=== PATIENT | male | born 1975 | race Two or more races ===

== ENCOUNTER 2017-02-21 07:51 | Day surgery (SDC) | payer MEDICAID ==
[~2017-02-21 07:51] MED LIST: Lactated Ringers 1,000 ML IV SCH
[2017-02-21] MEDS ORDERED: Midazolam 1 MG/ML 2 ML SDV IV ONE (09:30)
[2017-02-21] MEDS ORDERED: fentaNYL 100 MCG/2 ML SDV IV ONE (09:30)
[2017-02-21] MEDS ORDERED: Ondansetron 4 MG/2 ML SDV IVPUSH ONE (09:30)
[2017-02-21] MEDS ORDERED: Dexamethasone 4 MG/ML 5 ML MDV IVPUSH ONE (09:30)
[2017-02-21] MEDS ORDERED: Lidocaine 2% 100 MG/5 ML Syringe IVPUSH ONE (09:30)
[2017-02-21] MEDS ORDERED: Propofol 200 MG/20 ML SDV IV ONE (09:30)
[2017-02-21] MEDS ORDERED: Lidocaine 1% 20 ML MDV ONE (09:45)
[2017-02-21] MEDS ORDERED: Bupivacaine 0.5% 30 ML SDV ONE (09:45)
[2017-02-21] MEDS ORDERED: traMADol 50 MG Tab PO PRN (10:06)
--- NOTE | 2017-02-21 10:06 | PCM.OPNOTE ---
- General Post-Op/Procedure Note Date of Surgery/Procedure: 02/21/17 Operative Procedure(s): left breast biopsy Findings: 3 cm breast nodule left Pre Op Diagnosis: gynecomastia left breast Post-Op Diagnosis: Same Anesthesia Technique: General LMA, Local (8 ml 1 % lido/0.5% buvipicaine) Primary Surgeon: Jaquan Garay Anesthesia Provider: Mesha Connolly Pathology: 3 cm breast nodule left Complications: None Condition: Good Free Text/Narrative:: see dictation
[2017-02-21 13:18] VITALS: BP 103/73
--- NOTE | 2017-02-21 15:15 | OR ---
DATE OF OPERATION: 02/21/2017 SURGEON: Jaquan Garay MD PROCEDURE PERFORMED: Right breast biopsy. PREOPERATIVE DIAGNOSIS: Gynecomastia, left breast. POSTOPERATIVE DIAGNOSIS: Gynecomastia, left breast. INDICATIONS FOR PROCEDURE: This is a 41-year-old male, who was referred with a history of a tender nodule below his left nipple. In addition, he has some clear nipple discharge as well as having an appearance of some asymmetry with regard to the nipple. He was offered and accepted biopsy. DESCRIPTION OF PROCEDURE: After an excellent LMA anesthetic was administered, the patient was prepped and draped in the usual sterile manner. The area around the mass and the nipple itself was infiltrated with a 1:1 mixture of 1% lidocaine with 0.5% bupivacaine. Curvilinear incision was then made at the base of the nipple, and a combination of sharp and electrocautery dissection was carried out to remove the mass. Sharp dissection was used to dissect free the underlying nipple and then electrocautery from circumferentially. The 3 x 1 cm circular mass was then passed off the field. The area was irrigated. Bleeding was controlled with electrocautery. A 0.5 inch Grahn drain was cut in half and a 5 cm length of this was placed into the wound and the wound was then closed with a running 4-0 subcu Vicryl. Steri-Strips were applied. Bulky dressing was applied. Needle, sponge, and instrument counts were reported as correct. The patient was taken to recovery room in good condition. /[id number] /JOANAL
== END 2017-02-21 11:48 | disposition home or self-care (01) ==
LOC: FB.SDS 07:51
PROVIDERS: ATTEND Surgery
PROC: 0HBX0ZX Excision of Left Nipple, Open Approach, Diagnostic (ICD-10-PCS; principal; 2017-02-21)
DX: N62 Hypertrophy of breast (principal); Z79.899 Other long term (current) drug therapy; Z88.6 Allergy status to analgesic agent
CPT/HCPCS: 19120; 88305; J1100; J2250; J2405; J2704; J3010; J7120